=== PATIENT | female | born 1995 | race Caucasian/White ===

== ENCOUNTER 2017-08-03 10:49 | Emergency (ER) | payer MEDICAID, SELFPAY ==
[2017-08-03 10:50] VITALS: BP 115/67; PULSE 99; RESP 18; TEMP 36.6; O2SAT 100; BMI 25.2
--- NOTE | 2017-08-03 11:43 | ED.DCSUM_ITS ---
- ER Visit Summary Date of Service: 08/03/17 Chief Complaint: Vaginal pain History of Present Illness: The patient is a 22 F who presents with pain in her vagina area. It has been going on for 5 days. She describes as sharp. It is worse with sitting down. She has a history of a boil in that same area. She denies any drainage. No fevers. No vaginal discharge. No urinary symptoms. She does have a history of genital herpes. Physical Examination: Vital signs are reviewed. Vaginal exam reveals tenderness palpation of the left labia. There are no skin lesions noted. There is a small indurated area in the inferior labral area. There is no fluctuance. No erythema. Test Results: None indicated Emergency Department Course and Treatment: The patient does not have a large Bartholin's cyst abscess. I did an anesthetized area with 2 cc of lidocaine. I then tried to aspirate this area and there was no purulent material. I do not feel she needs to be incised and drained. I will place her on antibiotics and give her naproxen for home use. 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 It may contain incorrect words, spelling, and punctuation that were not noted in review of the chart prior to signing ED Disposition - Plan for ED Patient: Chief Complaint: Abscess Referrals: Jd Armenta MD [Primary Care Provider] -
--- NOTE | 2017-08-03 11:43 | ED.DEP ---
ED Disposition - Plan for ED Patient: Disposition: Home or Assisted Living Chief Complaint: Abscess Instructions: ED Bartholins Cyst IandD Prescriptions: Naproxen [Naprosyn] 500 mg PO BID PRN #20 tab Clindamycin HCl [Cleocin] 300 mg PO TID #21 cap Referrals: Jd Armenta MD [Primary Care Provider] -
[2017-08-03] MEDS: Clindamycin HCl 150 MG Capsule 300 MG PO (11:49)
[2017-08-03 11:50] VITALS: BP 132/69; PULSE 74; RESP 15; O2SAT 98
== END 2017-08-03 11:51 | disposition home or self-care (01) ==
PROVIDERS: Emergency Provider Emergency Medicine; Family Provider Family Medicine; PCP Family Medicine
DX: N75.1 Abscess of Bartholin's gland (principal); Z86.19 Personal history of other infectious and parasitic diseases; Z72.0 Tobacco use
CPT/HCPCS: 10160; 10060; 99283

== ENCOUNTER 2017-08-05 12:36 | Emergency (ER) | payer MEDICAID, SELFPAY ==
[2017-08-05 12:37] VITALS: BP 122/61; PULSE 131; RESP 18; TEMP 36.9; O2SAT 100; BMI 25.9
[2017-08-05] MEDS: Naproxen 500 MG Tablet PO (13:15)
[2017-08-05] MEDS: oxyCODONE 5 MG Tablet PO (13:15)
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
[2017-08-05 13:59] VITALS: BP 125/70; PULSE 101; RESP 14; O2SAT 99
== END 2017-08-05 14:00 | disposition home or self-care (01) ==
LOC: ED 13:51
PROVIDERS: Emergency Provider Emergency Medicine; Family Provider Family Medicine; PCP Family Medicine
DX: S30.23XA Contusion of vagina and vulva, initial encounter (principal); Y04.8XXA Assault by other bodily force, initial encounter; Y07.03 Male partner, perpetrator of maltreatment and neglect; Y93.9 Activity, unspecified; Y92.9 Unspecified place or not applicable; Y99.9 Unspecified external cause status
CPT/HCPCS: 99283

== ENCOUNTER → 2018-01-19 10:26 | Outpatient (CLI) | payer MEDICAID, SELFPAY ==
[2018-01-19 12:48] LABS: hCG Titer Quant., Serum < 1 mIU/mL (<9 non-preg)
[2018-01-19 12:54] LABS: Hemoglobin A1c 5.3 % (4.2-6.3)
[2018-01-19 14:45] LABS: Follicle Stimulating Hormone 3.8 mIU/mL; Free T3 3.1 pg/mL (2.18-3.98); Luteinizing Hormone 10.1 mIU/mL; Prolactin 18.9 ng/mL; T4 Free Direct 0.98 ng/dL (0.76-1.46); Thyroid Stim Hormone (TSH) 1.93 uIU/mL (0.358-3.74)
[2018-01-27 10:47] LABS: HPV HC, High Risk Negative (Negative); HPV Reflexed? YES, CHARGE PATIENT
== END ==
PROVIDERS: Visit Provider Obstetrics & Gynecology
DX: Z12.4 Encounter for screening for malignant neoplasm of cervix (principal); N92.5 Other specified irregular menstruation
CPT/HCPCS: 36415; 83001; 83002; 83036; 84146; 84439; 84443; 84481; 84702; 87624; 88175; G0145

== ENCOUNTER → 2020-01-25 | Outpatient (CLI) | payer MEDICAID, SELFPAY ==
[2020-01-28 03:06] LABS: Chlamydia By Nucleic Acid AMP Negative (Negative)
[2020-01-28 05:54] LABS: HPV Reflexed? NOT INDICATED
[2020-01-28 06:43] LABS: Gonococcus By Nucleic Acid AMP Negative (Negative)
== END | disposition home or self-care (01) ==
LOC: LABSPEC 13:24
PROVIDERS: Visit Provider Student in an Organized Health Care Education/Training Program
DX: Z12.4 Encounter for screening for malignant neoplasm of cervix (principal); Z11.3 Encounter for screening for infections with a predominantly sexual mode of transmission; Z32.01 Encounter for pregnancy test, result positive
CPT/HCPCS: 87491; 87591; 88175; G0145

== ENCOUNTER → 2020-02-18 15:00 | Outpatient (CLI) | payer MEDICAID, SELFPAY ==
[2020-02-18 16:39] LABS: Absolute Lymphocyte Count 2.17 X10^3/uL (0.83-4.51); Absolute Neutrophil Count 6.1 X10^3/uL (2.0-7.7); Basophil# 0.05 X10^3/uL; Basophil% 0.6 % (0-1); Eosinophils% 2.2 % (0-5); Hematocrit 36.2 % (37-47); Hemoglobin 11.5 g/dL (12.0-15.0); Lymphocyte # 2.17 X10^3/ul (4.0); Lymphocyte % 24.1 % (19-41); Mean Corp Hgb Conc 31.8 g/dL (32-36); Mean Corpuscular Hgb 28.7 pg (27.0-32.0); Mean Corpuscular Volume 90.3 fL (81-99); Mean Platelet Vol. 10.8 fl (6.2-12.0); Monocyte# 0.41 X10^3/uL; Monocyte% 4.6 % (0-10); NRBC Flagged by Analyzer 0 % (0-5); Neutrophil # 6.14 X10^3/uL (2.7-7.7); Neutrophil % 68.2 % (47-70); Platelet Count 239 K/mm3 (150-450); RBC Distribution Width CV 12.7 % (11.6-14.6); RBC Distribution Width SD 41.7 fl (35.1-43.9); Red Blood Count 4.01 M/mm3 (4.2-5.4)
[2020-02-18 16:48] LABS: Amphetamine Urine VISTA NEGATIVE (<1000 ng/mL); Barbiturate Urine VISTA NEGATIVE (< 200 ng/mL); Benzodiazepine Urine VISTA NEGATIVE (< 200 ng/mL); Cocaine Urine VISTA NEGATIVE (< 300 ng/mL); Ecstacy Urine VISTA NEGATIVE (< 500 ng/mL); Methadone Urine VISTA NEGATIVE (< 300 ng/mL); PCP Urine VISTA NEGATIVE (< 25 ng/mL); THC Urine VISTA NEGATIVE (< 50 ng/mL); Vista UDS pH Range 6
[2020-02-19 09:39] LABS: HIV - WCH Non-Reactive (Nonreactive); Hepatitis B Surface Antigen Non-Reactive (Nonreactive); Hepatitis C Antibody Non-Reactive (Nonreactive); Rubella IgG Reactive (Nonreactive)
[2020-02-24 05:07] LABS: Prenatal RPR NONREACTIVE (NONREACTIVE)
== END ==
PROVIDERS: Visit Provider Student in an Organized Health Care Education/Training Program
DX: Z34.82 Encounter for supervision of other normal pregnancy, second trimester (principal)
CPT/HCPCS: 36415; 80307; 85025; 86703; 86762; 86803; 87086; 87088; 87340

== ENCOUNTER → 2020-08-04 | Outpatient (CLI) | payer MEDICAID, SELFPAY | END | disposition home or self-care (01) | LOC: LABSPEC 15:11 | PROVIDERS: Visit Provider Student in an Organized Health Care Education/Training Program | DX: Z36.85 Encounter for antenatal screening for Streptococcus B (principal) | CPT/HCPCS: 87081 ==

== ENCOUNTER → 2020-08-16 | Outpatient (CLI) | payer MEDICAID, SELFPAY | END | disposition home or self-care (01) | LOC: LABSPEC 15:23 | PROVIDERS: Referring Provider Student in an Organized Health Care Education/Training Program; Visit Provider Student in an Organized Health Care Education/Training Program | DX: Z03.818 Encounter for observation for suspected exposure to other biological agents ruled out (principal) | CPT/HCPCS: 87635; C9803; U0002 ==

== ENCOUNTER 2020-08-21 05:15 | Inpatient (IN) | payer MEDICAID, SELFPAY ==
[2020-08-21] VITALS (19 sets, daily range): BP systolic 104–133; BP diastolic 40–83; PULSE 60–87; RESP 16–18; TEMP 36.2–36.6; O2SAT 96–100; BMI 35.3
[2020-08-21] MEDS: Lactated Ringers 1,000 ML 999 ML IV (05:38)
[2020-08-21 05:56] LABS: Absolute Neutrophil Count 5.5 X10^3/uL (2.0-7.7); Basophil# 0.04 X10^3/uL; Basophil% 0.5 % (0-1); Eosinophils% 1.2 % (0-5); Hematocrit 33.5 % (37-47); Hemoglobin 11.2 g/dL (12.0-15.0); Lymphocyte % 27.6 % (19-41); Mean Corp Hgb Conc 33.4 g/dL (32-36); Mean Corpuscular Hgb 29.3 pg (27.0-32.0); Mean Corpuscular Volume 87.7 fL (81-99); Mean Platelet Vol. 12.3 fl (6.2-12.0); Monocyte# 0.35 X10^3/uL; Monocyte% 4.2 % (0-10); NRBC Flagged by Analyzer 0 % (0-5); Neutrophil # 5.51 X10^3/uL (2.7-7.7); Platelet Count 188 K/mm3 (150-450); RBC Distribution Width CV 12.9 % (11.6-14.6); RBC Distribution Width SD 41.1 fl (35.1-43.9); Red Blood Count 3.82 M/mm3 (4.2-5.4); White Blood Count 8.3 K/mm3 (4.4-11.0)
[2020-08-21] MEDS: Acetaminophen 500 MG Tablet 1000 MG PO ×3 (06:01→18:10)
[2020-08-21 06:06] LABS: Amphetamine Urine VISTA NEGATIVE (<1000 ng/mL); Barbiturate Urine VISTA NEGATIVE (< 200 ng/mL); Benzodiazepine Urine VISTA NEGATIVE (< 200 ng/mL); Cocaine Urine VISTA NEGATIVE (< 300 ng/mL); Ecstacy Urine VISTA NEGATIVE (< 500 ng/mL); Methadone Urine VISTA NEGATIVE (< 300 ng/mL); PCP Urine VISTA NEGATIVE (< 25 ng/mL); THC Urine VISTA NEGATIVE (< 50 ng/mL); Vista UDS pH Range 6
[2020-08-21] MEDS: Lactated Ringers 1,000 ML 150 ML IV (06:32)
[2020-08-21] MEDS: Sodium Citrate/Citric Acid 30 ML UDC PO (07:14)
--- NOTE | 2020-08-21 07:17 | PCM.HP.OB ---
HPI - General General Date of Admission: 08/21/20 HPI Narrative 25-year-old G3, P2 at 39/3 weeks, ALEXANDRU 08/25/2020 by 9-week ultrasound, admitted for repeat section. Denies leaking of fluid, vaginal bleeding, chest pain, shortness of breath, nausea or vomiting, diarrhea or constipation, fevers or chills. Reports movement complicated by: History of drug use with rehab stay this , history of HSV, history of help syndrome. G1: 25w c/s HELLP, LTCS G2: 39w c/s G3: current Maternal Data Information Final ALEXANDRU: 08/25/20 Final ALEXANDRU Source: US <20 weeks [facility] Medical History (Updated 08/21/20 @ 07:[address] Anne Daugherty, DO) Genital herpes affecting Herpes genitalia Pre-eclampsia Home Medications aspirin 81 mg PO DAILY 08/21/20 [History Last Taken Unknown] [id number] [] 1 tab PO DAILY 08/21/20 [History Last Taken 08/20/20] valacyclovir 500 mg PO BID 08/21/20 [History Last Taken 08/20/20] Allergy/AdvReac Type Severity Reaction Status Date / Time tramadol HCl [From Ultram] Allergy Mild Rash Verified 08/21/20 06:16 hydrocodone bitartrate Allergy Rash Verified 08/05/17 12:39 [From Vicodin] latex Allergy Hives Verified 08/05/17 12:39 methylphenidate HCl Allergy Hives Verified 08/05/17 12:39 [From Concerta] Surgical History H/O laparoscopy Previous section Social History Smoking Status: Current every day smoker History 3 Elective abortions Hx Para 1 Spontaneous abortions Hx # Term Pregnancies 1 Ectopic pregnancies Hx # Pregnancies 1 Multiple births # of living children 1 ROS Constitutional Constitutional: Denies fever(s), malaise or weakness Eyes Eyes: Reports systems reviewed and no addt'l complaints, except as documented ENT HEENT: Reports systems reviewed and no addt'l complaints, except as documented Cardiovascular Cardiovascular: Reports systems reviewed and no addt'l complaints, except as documented Respiratory/Chest Respiratory/Chest: Reports systems reviewed and no addt'l complaints, except as documented Gastrointestinal Gastrointestinal: Reports systems reviewed and no addt'l complaints, except as documented Genitourinary Genitourinary: Reports systems reviewed and no addt'l complaints, except as documented Musculoskeletal Musculoskeletal: Reports systems reviewed and no addt'l complaints, except as documented Integumentary Integumentary: Reports systems reviewed and no addt'l complaints, except as documented Neurologic Neurologic: Reports systems reviewed and no addt'l complaints, except as documented Psychiatric Psychiatric: Reports systems reviewed and no addt'l complaints, except as documented Endocrine Endocrinology: Reports systems reviewed and no addt'l complaints, except as documented Hematologic/Lymphatic Hematologic/Lymphatic: Reports systems reviewed and no addt'l complaints, except as documented Allergic/Immunologic Allergic/Immunologic: Reports systems reviewed and no addt'l complaints, except as documented Vital Signs Vital Signs Vital Signs: 08/21/20 06:24 Temperature 97.9 F Temperature Source Temporal Pulse Rate 87 Respiratory Rate 18 Blood Pressure 128/74 H Blood Pressure Mean 92 Blood Pressure Source Monitor Blood Pressure Position Semi-Fowlers Blood Pressure Location Left Arm Pulse Ox 97 Oxygen Delivery Method Room Air Physical Exam Const alert, oriented x3 and no apparent distress HEENT normocephalic Head and Scalp: atraumatic Eyes PERRL and EOMs intact bilaterally Neck full ROM and no lymphadenopathy Resp normal respiratory effort and clear to auscultation bilaterally Cardio regular rate and regular rhythm GI normal to inspection, nondistended, normoactive bowel sounds Inspection: gravid Extremity normal to inspection and no pedal edema Skin no rashes or lesions noted Psych mental status grossly normal and affect normal Labs Labs Labs: Blood Type B POSITIVE Antibody Screen NEGATIVE Hct 33.5 % (37-47) L Hgb 11.2 g/dL (12.0-15.0) L VZV IgG Antibody 3044 index (Immune >165) Rubella IgG Antibody Reactive (Nonreactive) Hep Bs Antigen Non-Reactive (Nonreactive) Neisseria gonorrhoeae DNA (MILEY) Negative (Negative) HIV 1&2 Antibody Non-Reactive (Nonreactive) C.trachomatis DNA (PCR) Negative (Negative) Glucose 1 Hr 50 gm 120 mg/dL (70-140) Group B Strep DNA Negative (Negative) Rhogam given: No Miscellaneous Test Assessment & Plan (1) History of drug use: (2) : PLAN: 25-year-old G3, P2 at 39/3 weeks, ALEXANDRU 08/25/2020 by 9-week ultrasound, admitted for repeat section. complicated by: History of drug use with rehab stay this , history of HSV, history of HELLP syndrome. -Admit to labor and delivery. 2g Ancef preop -Social service consult -Continue HSV suppression -Routine orders (3) Tobacco abuse:
[2020-08-21] MEDS: Cefazolin 2 GM in 0.9% Normal Saline 100 ML IV (07:22)
--- NOTE | 2020-08-21 08:15 | EX.PCM.OBRPT ---
Maternal Data Information Final ALEXANDRU: 08/25/20 Final ALEXANDRU Source: US <20 weeks Details Operative Information Date of Procedure: 08/21/20 Pre-Operative Diagnosis: Easley intrauterine , repeat section Post-Operative Diagnosis: Easley intrauterine , repeat section Classification: Scheduled Procedure Type: low transverse Type of Anesthesia: Spinal Antibiotic Given: Ancef 2 grams IV x1 Estimated Blood Loss: 700cc Fluids Replaced: 1000cc Findings Description of Procedure: Indications/risk/benefits: Patient is a G3, P2 living 1 at 39/3 weeks presenting for repeat section. All risk, benefits, alternatives were discussed with patient. Risks include but are not limited to: Risk of bleeding to the point of transfusion, infection, injury to surrounding tissue including bowel or bladder requiring prolonged Odell catheter use, VTE, ICU admission. Patient aware and consented. Procedure: Patient taken to the operating room spinal anesthesia placed. Patient placed in the supine position with a left lateral tilt. Prepped and draped in the usual sterile fashion. Pfannenstiel skin incision made with scalpel carried down through underlying subcutaneous tissue. Fascia nicked on either side of the midline and extended bilaterally using Rajput scissors. Gamal clamps grasped superior fascial edge which was tented up and underlying rectus muscles were dissected off bluntly and sharply at midline using Rajput scissors. Gamal clamps moved to inferior fascial edge and underlying rectus muscles were dissected off in a similar fashion. Rectus muscles at midline and peritoneum grasped with 2 hemostats. Metzenbaum scissors incised peritoneum. Finger was placed the peritoneal window to ensure lack of adhesions. No adhesions noted. Window extended bluntly. Vesicouterine peritoneum identified and bladder flap was created with Metzenbaum scissors. Low transverse uterine incision made with scalpel. Clear fluid. Hand placed into the uterine cavity and with the assistance of gentle fundal pressure delivered followed by body. No nuchal cord. Cord clamped and cut. Baby handed to nursing. Spontaneous delivery of placenta. Uterus exteriorized and cleared of all clots with a lap. Hysterotomy closed with a running locking stitch followed by a second horizontal imbricating stitch. 1 [id number] suture placed for oozing in the middle of the hysterotomy, hemostatic. Uterus replaced into the abdomen. Hysterotomy closure continue to be hemostatic. Peritoneum closed with a running stitch. Fascia closed with running stitch. Skin closed with running subcuticular stitch. At the end of the procedure all needle, lap, sponge counts were correct x3. (1 minute): 9 (5 minute): 10 Delayed Cord Clamping: Yes Complications Complications: None.
[2020-08-21] MEDS: Oxytocin 30 units/NS 500 ml 30 UNITS/500 ML IV.SOLN 167 UNITS IV (08:35)
[2020-08-21] MEDS: Ketorolac 30 MG/ML Syringe IV ×3 (08:53→20:24)
[2020-08-21] MEDS: Lactated Ringers 1,000 ML 100 ML IV (12:01)
[2020-08-21] MEDS: 0.9% Saline Lock 10 ML Syringe IV ×2 (14:32→20:24)
--- NOTE | 2020-08-21 16:38 | CASEMGMT ---
Social Work Labor and Delivery Unit Social work consult noted. Chart reviewed. Plan to see patient/mother of baby on 08.22.2020 for assessment. -LÓPEZ Owen, TECHNOLOGY INFUSION SPECIALIST
[2020-08-22] MEDS: Acetaminophen 500 MG Tablet 1000 MG PO ×4 (00:06→18:27)
[2020-08-22 00:08] VITALS: BP 122/70; PULSE 75; RESP 18; TEMP 36.7
[2020-08-22] MEDS: Ketorolac 30 MG/ML Syringe IV (02:08)
[2020-08-22] MEDS: 0.9% Saline Lock 10 ML Syringe IV (02:09)
[2020-08-22 03:30] VITALS: BP 114/67; PULSE 63; RESP 16; TEMP 36.4
[2020-08-22 06:25] LABS: Hematocrit 29.8 % (37-47); Hemoglobin 9.9 g/dL (12.0-15.0); Mean Corp Hgb Conc 33.2 g/dL (32-36); Mean Corpuscular Hgb 29.7 pg (27.0-32.0); Mean Corpuscular Volume 89.5 fL (81-99); Mean Platelet Vol. 11.5 fl (6.2-12.0); Platelet Count 168 K/mm3 (150-450); RBC Distribution Width CV 13.1 % (11.6-14.6); RBC Distribution Width SD 42.7 fl (35.1-43.9); Red Blood Count 3.33 M/mm3 (4.2-5.4); White Blood Count 7.7 K/mm3 (4.4-11.0)
--- NOTE | 2020-08-22 07:48 | PCM.PN.OB ---
Subjective Subjective Postop day 1 repeat section. Pain controlled. Lochia minimal. Objective Data Objective Data Vital Signs: Vital Signs Temp Pulse Resp BP Pulse Ox 97.6 F L 63 16 114/67 99 08/22/20 03:30 08/22/20 03:30 08/22/20 03:30 08/22/20 03:30 08/21/20 20:30 Oxygen Delivery Method Room Air Weight: 79.4 kg Body Mass Index (BMI) 35.3 Intake & Output: Intake and Output for Last 24 Hours 08/20/20 08/21/20 08/22/20 23:59 23:59 23:59 Intake Total 2146.67 / 2146.67 Output Total 900 / 900 600 / 600 Balance 1246.67 / 1246.67 -600 / -600 Lab / Micro Data Result Diagrams: 08/22/20 06:20 Labs: Laboratory Results - last 24 hr 08/22/20 06:20 WBC 7.7 RBC 3.33 L Hgb 9.9 L Hct 29.8 L MCV 89.5 MCH 29.7 MCHC 33.2 RDW Std Deviation 42.7 RDW Coeff of Tina 13.1 Plt Count 168 MPV 11.5 ROS ENT HEENT: Denies dizziness or headache(s) Cardiovascular Cardiovascular: Denies chest pain or dyspnea Gastrointestinal Gastrointestinal: Denies change in bowel habits Musculoskeletal Musculoskeletal: Denies difficulty walking Physical Exam Const alert, oriented x3 and no apparent distress HEENT normocephalic Head and Scalp: atraumatic Resp normal respiratory effort Cardio regular rate GI GI Narrative: Dressing clean and dry. Uterus 2 cm below umbilicus. Extremity no pedal edema Assessment & Plan (1) Delivery by section: PLAN: Postop day 1 status post repeat section. Acute blood loss anemia secondary to surgery. Iron supplement at home. History of drug use with rehab stay during this . No current active use. Home-going tomorrow. (2) Acute blood loss as cause of postoperative anemia: (3) History of drug use:
[2020-08-22] MEDS: Ibuprofen 600 MG Tablet PO ×3 (08:30→20:39)
[2020-08-22 08:52] VITALS: BP 133/68; PULSE 71; RESP 16; TEMP 36.6; O2SAT 99
[2020-08-22] MEDS: Senna/Docusate Sodium 1 Tablet PO (10:30)
[2020-08-22] MEDS: oxyCODONE 5 MG Tablet PO ×2 (13:25→22:01)
--- NOTE | 2020-08-22 15:25 | CASEMGMT ---
Social Work Assessment Labor and Delivery Unit Patient Address: [address] [place] [address] [address], [place] [address] Phone number: [phone] Date of Referral: 08.21.2020 Time of Referral: 537 Referred By: Dr. Anne Daugherty Date of Intervention: 08.22.2020 Time of Intervention: 1524 Reason for Referral: maternal history of drug use, recent rehab stay, non-custody of older child History obtained from: Medical records and mother of baby (MOB) Household composition: EMI reports to live with the father of baby (FOB) Alex Daugherty and Alex's best friend Ren. Home situation is reported as safe and adequate at this time. Patient's parent/guardian status: EMI is a 25 year old but female, involved with the reported FOB Alex Daugherty (age 34) for the last 2 years. EMI denies any form of abuse in the relationship with the FOB. Note, EMI's is a man by the name of Ean Abelino (is not the father of the baby). EMI has two children and baby is the first for FOB. Minor children include: Kira Saldivar, born 04.13.2013, currently in the custody of EMI's grandmother since 2015. MOB reports to get Kira every weekend since EMI got out of rehab in May 2020. Father is Ean Roca. baby is Derrell Daugherty, born 08.21.2020, and father is Alex Daugherty. EMI did have a loss at 22 weeks gestation, a son named Aaron. This was prior to 2013. Medical History: EMI is G3, P1 to 2 after delivering Derrell. One 22 week loss. History of HELLP syndrome with the 22 week delivery. care for with Derrell started at 13 week gestation then restarted at 30 gestation in [place]. EMI reports was in rehab during the and received care while in the rehab facility. Delivery of Derrell via repeat . Apgars 9 and 10 at 1 and 5 minutes of life. Educational Status: 12th grade. No reported issues with learning or comprehension. Financial Status: EMI not currently employed, but TONA is reportedly employed fulltime at a [employer]. Supplies: EMI reports to have all needed supplies including pack-n-play, car seat, clothing, diapers, wipes, and breast pump. Childcare/Caregiver(s): MOB plans to be primary caregiver. Transportation: MOB reports to have a drivers license but not own car. MOB reports Alex drives and other family is around to help if needed. Programs/Agencies Involved: MOB repots to have [employer] for food and medical. Active with WIC. Agrees to a [facility] [place], and reports has been waiting for name to come up on a waiting list. MOB reports to be in counseling with [facility] in [place] for IOP (Fri, , ) and sees counselor Laura Sher. Children Services/Legal Issues: Reports to be on probation out of [facility] for disorderly conduct issues (which led to court ordered rehab). No new charges. History of [facility] for older daughter related to MOB using drugs. No current case with any children services agency reported. Behavioral Health Issues: Mental Health History: MOB repots history of depression, anxiety, PTSD, ADHD, and ADD. No current medications. Has tried Wellbutrin but reports did not like this and quit. Reports the medication increased MOB isolation tendencies. Reports history of one episode of locking self in the bathroom and stating was suicidal. This is the incident which resulted in MOB being charged for disorderly conduct, and reports was in active use of drugs at the time. MOB denies any thought of, planning, or action regarding suicide outside of the incident documented above. MOB reports to color for coping. Substance Use History: MOB reports has been sober of opiates/pain pills (denies heroin or fentanyl use) since ending things with Ean, but used opiates for 3 years. 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 Reports drug of choice is marijuana. Reports during used CBD pens only. Denies history of other illicit drug use, such as cocaine. Denies alcohol use or abuse history. Does smoke tobacco and in went from about 1 pack to a half a pack per day, ultimately to 3 cigarettes a day. Treatment History: Reports went through a 120 day rehab program in [place] and [facility]. Maxim any type of MAT. Discharged in May to follow up with IOP at [facility]. Reports to be actively involved with this program. Family History: Reports a sister has Bipolar. Drug Screens: Negative drug screens on 02.17.2021 and 08.21.2020. No testing on baby. Family/Social Stressors: Unplanned but accepted . MOB in active drug use at beginning of , but did seek treatment as ordered by the courts. Still on probation. Maternal history of mental health. FOB is deaf and MOB does worry about FOB being deaf, such as when the FOB is driving. MOB does endorse, when asked, that FOB also has history of drug use issues. Reportedly using methamphetamines as well, but quite on own when MOB went into treatment. FOB did so on own, without the any or support of any program. MOB reports additional stress from the roommate who was not receptive to FOB's father staying at the home without the FOB present. The FOBs father was up visiting fo another family engagement and decided to stay due to impending of the baby. MOB reports Ren not being receptive to FOB's father in the home with out FOB has caused stress, to the point that MOB and FOB will be looking for a new place to live soon. Support Systems: MOB reports her mother is go to person for practical help. [facility] is main emotional support, and is identified as the go to for MOB would MOB start to feel depression or anxious in the period. Depression/Shaken Baby/Safe Sleeping: Educated dot safe sleeping and shaken baby prevention. Educated to mood and anxiety disorders, risk factors, and importance of seeking out help and support if symptoms arise or become distressing. ASSESSMENT: Met with the MOB in room alone. Introduced to self and social work role. MOB receptive to social work visit. Held baby during social work visit. Gentle and appropriate during social work visit. MOB reports to feel safe in home situation, despite tension with the roommate. MOB reports will be looking for a new place to stay soon, but at this time housing is adequate. Reports to have needed supplies. Reports intent to stay in counseling at [facility]. Educated that substance exposure in utero does require notification to children services, though not necessarily mean a case will be opened. From reported sober date there would have been some first trimester exposure to methamphetamines. Reported CBD use in . MOB reported that did have a positive drug screen for THC with contract officer, but due to low levels agreed to give MOB a chance and believe this was CBD. MOB was talkative, nondefensive in conversation. MOB reports has been having some pain from site, so did have some pain medications today. MOB reports would like pain controlled prior to going home. Safe Plan of Care for related to substance use: Discussed safe plan of care for infant regarding substances. MOB reports plan to abstain from any illicit drug usage. Should things change would ensure that children are not around. MOB repots if sees any sign of FOB returning to use would not allow FOB to care for children. PLAN: Social work to follow and assist as indicated. MOB and baby to discharge home, but will make report to children services due to reported exposure to substances in utero. No other services requested or indicated. -DIVINA Owen, YULIA *Information documented in this assessment generated with [employer] System*
[2020-08-22 15:33] VITALS: BP 125/75; PULSE 94; RESP 16; TEMP 36.9; O2SAT 98
--- NOTE | 2020-08-22 18:13 | NURSING ---
Late entry put in for first post op ambulation. Trenton Crawford RN pt was up yesterday at 1430.
[2020-08-22 20:32] VITALS: BP 118/80; PULSE 84; RESP 16; TEMP 37.1; O2SAT 98
[2020-08-22] MEDS: Enoxaparin 40 MG/0.4 ML Syringe SC (20:40)
[2020-08-23] MEDS: Acetaminophen 500 MG Tablet 1000 MG PO ×3 (00:37→12:44)
[2020-08-23 03:03] VITALS: BP 122/57; PULSE 81; RESP 18
[2020-08-23] MEDS: Ibuprofen 600 MG Tablet PO ×2 (03:04→09:39)
[2020-08-23 07:53] VITALS: BP 123/73; PULSE 69; RESP 16; TEMP 36.9; O2SAT 99
--- NOTE | 2020-08-23 09:04 | DS.PCM_ITS ---
Providers Date of Admission: 08/21/20 Date of Discharge: 08/23/20 Primary Care Physician: No Primary Care Phys Reason For Visit: REPEAT C SECTION Diagnosis Discharge Diagnosis (1) Delivery by section: Status: Acute (2) Acute blood loss as cause of postoperative anemia: Status: Acute Code(s): D62 - Acute posthemorrhagic anemia Medications at Discharge Home Medications [id number] 1 tab PO DAILY 08/21/20 valacyclovir 500 mg PO BID 08/21/20 ferrous sulfate 325 mg PO BID #60 tab 08/23/20 ibuprofen 600 mg PO Q8H PRN PRN #30 tab 08/23/20 oxycodone 5 mg PO Q6H PRN PRN 28 Days #28 tab 08/23/20 Hospital Course Operations section Procedures None Summary of Care Provided Hospital Course: 25yo admitted at 39 weeks for scheduled section. The procedure was uncomplicated and her post-operative course was marked by postoperative anemia but otherwise unremarkable. She was discharged to home on postoperative day #2. Physical Exam Narrative She is sore. Pain is controlled with medications. She is out of bed, passing flatus, tolerates PO without nausea or vomiting. Denies swelling, headache, vision changes, shortness of breath or chest pain. Has scant lochia. Const alert, oriented x3 and no apparent distress Resp normal respiratory effort, normal air movement and clear to auscultation bilaterally Cardio regular rate, regular rhythm, S1 normal heart sound and S2 normal heart sound GI normal to inspection, nondistended, normoactive bowel sounds, soft to palpation, non-tender and non-distended Manual OB Exam: other lochia scant Uterus Palpation: uterus fundus firm Extremity no calf tenderness and no pedal edema ABG / Lab / Microbiology Data Result Diagrams: 08/22/20 06:20 D/C Instructions Discharge Diet: No restrictions Discharge Activity: Return to Normal Activity, May Shower and May Take a Tub Bath May resume sexual activity in: 4-6 weeks Lifting Restricted to (Lbs): 20 Call your doctor if you observe: Fever of 101 or Higher, Using more than one pad per hour, Shortness of breath, Chest pain, Calf discomfort, Uncontrolled pain a nd - (Persistent or severe headache) Additional Dressing/Incision Instructions: Remove dressing on Friday Please Follow Up With: Anne Daugherty DO When: 2 weeks for postoperative visit 6 weeks for visit Meaningful Use Info Meaningful Use Diagnoses (Choose all that apply): None applicable Discharge Plan Admission Admit Date/Time: 08/21/20 05:15 Primary Reason for Your Visit: section Attending Provider: Anne Daugherty Primary Care Provider: Care Physician,No Primary Instructions Patient Instructions: Anemia, After a Discharge Orders/Prescriptions Prescriptions: New ibuprofen 600 mg Tablet 600 mg PO Q8H PRN PRN (Reason: pain) Qty: 30 RF: 0 oxycodone 5 mg Tablet 5 mg PO Q6H PRN PRN (Reason: Pain Score 6-10) 28 Days Qty: 28 RF: 0 ferrous sulfate 325 mg (65 mg iron) tablet 325 mg PO BID Qty: 60 RF: 0 Continued valacyclovir 500 mg tablet 500 mg PO BID RF: 0 [id number] 1 mg Tablet 1 tab PO DAILY RF: 0 Discontinued aspirin 81 mg tablet,chewable 81 mg PO DAILY RF: 0 Referrals / Follow Up: Care Physician,No Primary [Primary Care Provider] - Disposition Disposition (needs filled in before D/C Order can be placed): Home, self care
[2020-08-23] MEDS: Senna/Docusate Sodium 1 Tablet PO (09:39)
[2020-08-23] MEDS: oxyCODONE 5 MG Tablet PO (09:46)
[2020-08-23 12:50] VITALS: BP 146/67; PULSE 100; RESP 18; TEMP 37.1; O2SAT 100
--- NOTE | 2020-08-23 13:44 | CASEMGMT ---
Social Work Labor and Delivery Unit Spoke with nursing and no identified concerns regarding mother/child bonding or interactions. [facility] referral made via the [facility]'s secure web based referral system. Referral made to [facility] ([facility]) and spoke with Onel in the intake department. 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 Reported other risk factors including father of baby with reported substance h history and mom with non-custody of older child. Brief maternal and infant histories reported. Reported strengths as well in that MOB went to rehab, negative drug screens, reportedly still in outpatient treatment, agrees to [facility] referral. Reported plan for discharge home today. No other services requested or indicated. -LÓPEZ Owen, [facility]
== END 2020-08-23 13:00 | disposition home or self-care (01) | DRG 540 ==
PROVIDERS: Admitting Provider Student in an Organized Health Care Education/Training Program; Visit Provider Student in an Organized Health Care Education/Training Program
PROC: 10D00Z1 Extraction of Products of Conception, Low, Open Approach (ICD-10-PCS; CPT 59514; principal; 2020-08-21 07:15)
DX: O34.211 Maternal care for low transverse scar from previous cesarean delivery (principal); O98.32 Other infections with a predominantly sexual mode of transmission complicating childbirth; A60.00 Herpesviral infection of urogenital system, unspecified; O99.334 Smoking (tobacco) complicating childbirth; F17.200 Nicotine dependence, unspecified, uncomplicated; O90.81 Anemia of the puerperium; D62 Acute posthemorrhagic anemia; Z3A.39 39 weeks gestation of pregnancy; Z37.0 Single live birth; Z79.82 Long term (current) use of aspirin; Z87.59 Personal history of other complications of pregnancy, childbirth and the puerperium
CPT/HCPCS: 80307; 85025; 85027; 86850; 86900; 86901; 99218; 99251; J7120; A4216; G0378; G0463

== ENCOUNTER → 2022-08-05 | Outpatient (CLI) | payer MEDICAID, SELFPAY ==
[2022-08-05 10:57] LABS: Absolute Lymphocyte Count 1.64 X10^3/uL (0.83-4.51); Absolute Neutrophil Count 3.6 X10^3/uL (2.0-7.7); Basophil# 0.04 X10^3/uL; Basophil% 0.7 % (0-1); Eosinophil# 0.09 X10^3/uL; Eosinophils% 1.6 % (0-5); Hematocrit 39.5 % (37-47); Hemoglobin 12.8 g/dL (12.0-15.0); Lymphocyte # 1.64 X10^3/ul (0.83-4.51); Lymphocyte % 28.6 % (19-41); Mean Corp Hgb Conc 32.4 g/dL (32-36); Mean Corpuscular Hgb 27.4 pg (27.0-32.0); Mean Corpuscular Volume 84.6 fL (81-99); Mean Platelet Vol. 10.8 fl (6.2-12.0); Monocyte# 0.36 X10^3/uL; Monocyte% 6.3 % (0-10); NRBC Flagged by Analyzer 0 % (0-5); Neutrophil # 3.59 X10^3/uL (2.7-7.7); Neutrophil % 62.5 % (47-70); Platelet Count 247 K/mm3 (150-450); RBC Distribution Width CV 12.6 % (11.6-14.6); RBC Distribution Width SD 38.3 fl (35.1-43.9); Red Blood Count 4.67 M/mm3 (4.2-5.4); White Blood Count 5.7 K/mm3 (4.4-11.0)
[2022-08-05 11:12] LABS: Thyroid Stim Hormone (TSH) 0.49 uIU/mL (0.358-3.74)
[2022-08-12 17:15] LABS: HPV Reflexed? NOT INDICATED
== END | disposition home or self-care (01) ==
LOC: WOBLAB 10:09
PROVIDERS: Visit Provider Student in an Organized Health Care Education/Training Program
DX: Z12.4 Encounter for screening for malignant neoplasm of cervix (principal)
CPT/HCPCS: 36415; 84443; 85025; 88175; G0145